=== PATIENT | female | born 1945 | race Caucasian/White ===

== ENCOUNTER 2021-04-07 03:38 | Inpatient (IN) | payer MEDICARE, SELFPAY ==
[2021-04-07] VITALS (28 sets, daily range): BP systolic 109–178; BP diastolic 41–117; PULSE 75–132; RESP 18–26; TEMP 35.5–36.8; O2SAT 95–100; BMI 33.7
--- NOTE | 2021-04-07 | ECHO_ITS ---
Patient Info Name: Mary Lou Desai Age: 76 years : 1945 Gender: Female Ht: 66 in Wt: 208 lbs BSA: 2.13 m2 HR: 87 bpm BP: 109 / 77 mmHg Heart Rhythm: Sinus Rhythm Technical Quality: Good Exam Date: 04/07/2021 1:44 PM Exam Location: [facility] Pulmonary Exam Room: 201 Patient Status: Inpatient Admit Date: 04/07/2021 Staff Ordering Physician: Antonio Strong MD Stocking Inspector: Angela Gutierrez RDCS Attending Provider: Devora Hayden DO Exam Type: CA echo doppler color flow Study Info Indications - elevated troponins Complete two-dimensional, color flow and Doppler transthoracic echocardiogram is performed. Summary 1. Complete two-dimensional, color flow and Doppler transthoracic echocardiogram is performed. 2. Left ventricular chamber dimension is normal. 3. Left ventricular systolic function is lower limits of normal, estimated at 50%. 4. Left ventricular wall thickness upper limits of normal. 5. Left ventricular septal wall motion is abnormal with septal motion related to bundle branch block. 6. The left ventricular diastolic function is grade II diastolic dysfunction. 7. Left atrial chamber dimension is moderately enlarged. 8. There is no aortic valve stenosis. 9. There is mild tricuspid valve regurgitation. 10. No pulmonary hypertension, estimated pulmonary arterial systolic pressure is 30 mmHg. Left Ventricle Left ventricular chamber dimension is normal. Left ventricular systolic function is lower limits of normal, estimated at 50%. Left ventricular wall thickness upper limits of normal. Left ventricular septal wall motion is abnormal with septal motion related to bundle branch block. The left ventricular diastolic function is grade II diastolic dysfunction. Right Ventricle Right ventricular chamber dimension is normal. Right ventricular systolic function is normal. Left Atria Left atrial chamber dimension is moderately enlarged. Right Atria Right atrial chamber dimension is mildly enlarged. Aortic Valve The aortic valve is not well visualized. There is no aortic valve stenosis. There is no aortic valve regurgitation. There is moderate aortic valve calcification. Pulmonic Valve The pulmonic valve is not well visualized. There is trace pulmonic regurgitation. Mitral Valve The mitral valve has thickened leaflets. There is mild mitral valve regurgitation. The mitral valve annulus is severely calcified. Tricuspid Valve The tricuspid valve leaflets are normal. There is mild tricuspid valve regurgitation. No pulmonary hypertension, estimated pulmonary arterial systolic pressure is 30 mmHg. Pericardium/Pleural The pericardium appears normal. There is no pericardial effusion. Inferior Vena Cava Normal inferior vena cava with >50% collapse upon inspiration consistent with normal right atrial pressure, 5 mmHg. Aorta The aortic root size at the sinus of Valsalva is normal. There is moderate aortic atherosclerosis. Left Ventricular Outflow Tract Name Value Normal LVOT 2D LVOT Diameter 2.0 cm LVOT Doppler LVOT Peak Gradient 8 mmHg
--- NOTE | ~2021-04-07 | XR_ITS ---
EXAMINATION: XR chest 1V portable DATE: 04/07/2021 03:58 INDICATION: Patient on hemodialysis presenting with shortness of breath. TECHNIQUE: frontal view of the chest was obtained. COMPARISON: None FINDINGS: Large bore dual lumen right internal jugular central venous catheter with distal tip at the superior cavoatrial junction. Pulmonary vascular congestion. Increased interstitial pattern in the right lower lung zone and favor pulmonary edema over pneumonia. There are also small bilateral pleural effusions . Mild cardiomegaly. Tortuous thoracic aorta. IMPRESSION: 1. Pulmonary vascular congestion with mild pulmonary edema versus less likely pneumonia in the right lower lung zone. 2. Small bilateral pleural effusions. 3. Cardiomegaly. Reviewed, dictated and finalized at location A. IMPRESSION: 1. Pulmonary vascular congestion with mild pulmonary edema versus less likely p neumonia in the right lower lung zone. 2. Small bilateral pleural effusions. 3. Cardiomegaly.
--- NOTE | ~2021-04-07 | XR_ITS ---
XR chest 2V DATE: 04/09/2021 10:12 INDICATION: Shortness of breath TECHNIQUE: AP and lateral views COMPARISON: 04/07/2021 portable AP chest FINDINGS: There is globular malleolar enlarged cardiac silhouette likely due to cardiomyopathy/cardio megaly. Pericardial effusion is not excluded. There is thoracic aortic calcification, ectasia and prominent tortuosity. Thoracic aortic aneurysm is not excluded. No hilar or mediastinal enlargement is evident. There is bilateral hyperinflation interval diminished right lower lung infiltrate; the lungs otherwis e appear clear.. Small pleural effusions are suggested, mildly improved on the right. No pulmonary vascularity is note d. Right internal jugular central venous catheter tip overlies upper right atrium. No pneumothorax. Diffuse osteopenia. There is degenerative spurring and kyphosis of the thoracic spine. IMPRESSION: Globular enlarged cardiac silhouette suggesting cardiomyopathy/cardiomegaly Small pleural effusions Interval resolution of pulmonary vascular congestion and diminished right infiltrate and right pleura l effusion since 04/07/2021 Aortic calcification, ectasia and tortuosity. Thoracic aortic aneurysm is not excluded Right internal jugular central venous catheter tip overlying upper right atrium Diffuse osteopenia Reviewed, dictated and finalized at location A. S ROOM ASSOCIATE IMPRESSION: Globular enlarged cardiac silhouette suggesting cardiomyopathy/card iomegaly Small pleural effusions Interval resolution of pulmonary vascular congestion and diminished right infil trate and right pleural effusion since 04/07/2021 Aortic calcification, ectasia and tortuosity. Thoracic aortic aneurysm is not e xcluded Right internal jugular central venous catheter tip overlying upper right atrium Diffuse osteopenia
--- NOTE | 2021-04-07 03:45 | ECG_ITS ---
Measurements Intervals [place] Rate: 119 P: 95 ME: 126 QRS: -12 QRSD: 162 T: 198 QT: 358 QTc: 505 Interpretive Statements ATRIAL FLUTTER/TACHYCARDIA WITH RAPID VENTRICULAR RESPONSE LEFT BUNDLE BRANCH BLOCK BASELINE ARTIFACT- I, II, III, AVR, AVL, AVF, V4-V5 ABNORMAL ECG Electronically Signed On 04-07-2021 6:08:32 CDT by Harley Decker D.O.
--- NOTE | 2021-04-07 03:47 | ED.SOB ---
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 Patient has not missed dialysis, and denies fever, denies chest pain, denies productive cough, no previous history of same. Unsure how much fluid they took off on Saturday Related Data Allergies Allergy/AdvReac Type Severity Reaction Status Date / Time lisinopril Allergy Swelling Verified 04/07/21 04:01 of Lip/Tongue/Throat Review of Systems Review of Systems: CONSTITUTIONAL: no fever, no weight loss, no confusion EYES: no vision changes, no eye pain ENT: no rhinorrhea, no sore throat, no difficulty swallowing R submandibular LAD CARDIOVASCULAR: no chest pain, no leg edema, no palpitations RESPIRATORY: no cough, positive for shortness of breath, no hemoptysis GASTROINTESTINAL: no abdominal pain, no nausea, no vomiting, no diarrhea GENITOURINARY: no flank pain, no dysuria, no hematuria SKIN: no rash, no jaundice MUSCULOSKELETAL: no back pain, no trauma. NEUROLOGIC: No headache, no dizziness, no focal weakness PSYCHIATRIC: No hallucinations, no suicidal ideation Exam Narrative: General: alert, afebrile, answering all questions appropriately Head: normocephalic, atraumatic Eyes: EOMI bilaterally, anicteric, no injection ENT: moist mucous membranes, oropharynx patent, no rhinorrhea Neck: supple, trachea midline, +JVD Chest: equal chest rise bilaterally, no chest wall trauma noted Lungs: decreased BS all pierce, no rales, labored breathing CV: regular rate, no KODY B, calf size equal bilaterally Abd: soft, non-distended, non-tender, no rebound, no gaurding, negative Onofre's : no CVA tenderness B, bladder non-distended EXT: no deformity noted, moving all extremities equally Skin: warm, dry, no pallor Neuro: alert, oriented x 3; CN 2-12 grossly intact, no dysarthria Psych: affect appropriate, though content normal Course Course Emergency Course: Patient arrives with sudden onset of shortness of breath by EMS; pulse ox 100% on 2LNC on arrival but patient with labored respirations and subdiaphragmatic retractions. Lung sounds are diminished in all pierce. Patient speaking 4-5 word sentences with mild difficulty. Portable chest x-ray was taken which showed some vascular congestion on x-ray no infiltrate. Patient is afebrile. Patient states this has not happened to her before she has not missed dialysis she is usually seen at [facility]. Differential diagnosis as above. Plan is to give albuterol, Lasix, and start nitro drip at 5 mcg and titrate blood pressure and comfort; CBC without elevated WBC, hemoglobin is 10.4 despite end-stage renal disease, potassium is normal at 4.2, BUN is 44 creatinine is 6.2 ABG is a venous blood sample but does not show acute respiratory acidosis. 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 No beds At [facility], Dr Gaspar consults at [place], will attempt to dc nitro drip and admit to IMU Consultations Consultation #1: After learning there are no beds and ultimately decided admit patient here Dr. Gaspar is also on staff here spoke with Dr. Gaspar again who agrees to consult on patient and see her today. Date: 04/07/21 Time: 05:36 Consultation #2: DC'd nitro drip 30 minutes prior. Patient doing well pulse 99, blood pressure 131/88, 100%
--- NOTE | 2021-04-07 03:50 | PC.NURSE ---
On arrival to ED pt states she had requested to go to [facility] due to that is where her specialist are and she has never been to this ED. Pt brought here instead and requested we call to notify her daughter. PH# Chapis [phone]. Spoke to Chapis at this time that states That is [place], come on. I told her before she even left to request [place], that is where her specialist and doctors are. She has had multiple admissions there. She has never even been to your hospital. EDP and Charge made aware.
[2021-04-07] MEDS: ALBUTEROL SULFATE NEB 2.5 MG/0.5 ML INH 5 MG INHALATION (04:01)
[2021-04-07] MEDS: IPRATROPIUM BR 0.02% INH SOLN 0.5 MG/2.5 ML VIAL INHALATION (04:01)
[2021-04-07] MEDS: FUROSEMIDE INJ 40 MG/4 ML VIAL IV PUSH (04:05)
[2021-04-07] MEDS: NITROGLYCERIN/D5W 200 MCG/ML 50 MG/250 ML BTL IV CONT (04:05)
[2021-04-07 04:07] LABS: Alveolar/Arterial O2 Gradient 73.9 mmHg; Base Excess ABG -1.8 mEq/l (+/-2.0); Fractional Inspired Oxygen 21 %; Oxygen Content ABG 8.7 %vol (16.0-22.0); Oxyhemoglobin 51.4 % THb (90.0-100.0); PCO2 ABG 39.4 mmHg (35.0-45.0); PO2 FiO2 Ratio Arterial Blood 1.37 %; Total Hemoglobin 12.1 g/dL (12.0-18.0); pH ABG 7.385 (7.350-7.450)
[2021-04-07 04:08] LABS: Basophils Absolute Auto 0.1 K/mm3 (0.0-0.1); Basophils Percent Auto 0.8 % (0.2-1.2); Eosinophils Absolute Auto 0.2 K/mm3 (0-0.3); Eosinophils Percent Auto 2.7 % (0-4.4); Hematocrit 34.6 % (37.0-47.0); Hemoglobin 10.4 g/dL (12.0-15.0); Immature Granulocyte Absolute 0.03 K/mm3 (0.00-0.031); Immature Granulocyte Percent A 0.3 % (0-0.5); Lymphocytes Absolute Auto 1.44 K/mm3 (0.9-3.2); Lymphocytes Percent Auto 16.3 % (18.3-44.2); Mean Corpuscular HGB Conc 30.1 g/dl (32-36); Mean Platelet Volume 9.3 fl (7.4-10.4); Monocytes Absolute Auto 0.6 K/mm3 (0.1-0.6); Monocytes Percent Auto 6.2 % (2.6-8.5); Neutrophils Absolute Auto 6.5 K/mm3 (1.3-6.7); Neutrophils Percent Auto 73.7 % (45.5-73.1); Platelet Count Result 262 k/mm3 (150-375); Red Blood Count 3.36 M/mm3 (4.2-5.4); Red Cell Distribution Width 14.6 % (11.5-14.5); White Blood Count 8.8 K/mm3 (4.5-10.0)
[2021-04-07 04:08] LABS: Device ROOM AIR; Modified Allen's Test Pass; Oxygen Saturation ABG 53.5 % (95.0-100.0); PO2 ABG 28.7 mmHg (80.0-100.0); Site Drawn RIGHT RADIAL
--- NOTE | 2021-04-07 04:20 | PC.NURSE ---
Pt titrated to 10mcg Nitro per EDP Dr Lizzie ABREU.
[2021-04-07 04:23] LABS: INR 1.2; Prothrombin Time 14.6 Seconds (11.1-14.7)
[2021-04-07 04:24] LABS: Partial Thromboplastin Time 34.9 SECONDS (22.3-36.8)
[2021-04-07 04:26] LABS: Alanine Aminotransferase 9 U/L (4-35); Albumin Level 4.1 g/dL (3.5-5.1); Alkaline Phosphatase 116 U/L (38-126); Anion Gap 15 mmol/L (8-16); Aspartate Amino Transferase 16 U/L (14-36); Bilirubin,Total 0.6 mg/dL (0.2-1.3); Blood Urea Nitrogen 44 mg/dL (7-17); Calcium 10.1 mg/dL (8.4-10.2); Carbon Dioxide 22 mmol/L (22-30); Chloride 99 mmol/L (98-107); Estimated CRCL calculation 8 ml/min; Estimated Glomerular Filt Rate 7; Glucose 114 mg/dL (65-110); Magnesium 2.2 mg/dL (1.6-2.3); Potassium 4.2 mmol/L (3.4-5.0); Sodium 136 mmol/L (137-145)
[2021-04-07 04:43] LABS: Troponin I 0.084 ng/mL (0.000-0.034)
--- NOTE | 2021-04-07 04:51 | PC.NURSE ---
VORB received from EDP Dr. Samuel to titrate infusion to 15 mcg/min.
--- NOTE | 2021-04-07 06:19 | PC.NURSE ---
BRADY received from Dr. Samuel to discontinue IV infusion.
[2021-04-07 08:02] LABS: Troponin I 0.156 ng/mL (0.000-0.034)
--- NOTE | 2021-04-07 08:17 | PM.CNNEP ---
Assessment and Plan Assessment and plan (1) End-stage renal disease (ESRD): Code(s): N18.6 - End stage renal disease Status: Acute Assessment and Plan: ON HEMODIALYSIS AFTER FAILED PERITONEAL DIALYSIS W [facility]LEBS[facility]A PERITONITIS- THEN FUNGAL PERITONITIS IN NOVEMBER-DECEMBER 2020. HAS TUNNELED R IJ HD LINE AND AVF BUT LATTER IS HEALING/ MATURINA (2) Pulmonary vascular congestion: Code(s): R09.89 - Other specified symptoms and signs involving the circulatory and respiratory systems Status: Acute Assessment and Plan: C/O BY DIASTOLIC CHF- PLAN IS FOR DIALYSIS TODAY AND TOMORROW. HOPEFULLY WILL BE ABLE TO DISCHARGE BY TOMORROW (3) Acute dyspnea: Code(s): R06.00 - Dyspnea, unspecified Status: Acute (4) Atrial fibrillation: Code(s): I48.91 - Unspecified atrial fibrillation Status: Acute (5) Diastolic congestive heart failure, NYHA class 2: Code(s): I50.30 - Unspecified diastolic (congestive) heart failure Status: Acute (6) Anemia in chronic kidney disease: Code(s): N18.9 - Chronic kidney disease, unspecified; D63.1 - Anemia in chronic kidney disease Status: Acute (7) Thoracic aortic aneurysm without rupture: Code(s): I71.2 - Thoracic aortic aneurysm, without rupture Status: Acute (8) Right leg DVT: Code(s): I82.401 - Acute embolism and thrombosis of unspecified deep veins of right lower extremity Status: Acute Assessment and Plan: MAR 2021 AT [facility]- FAILED COUMADIN SO PLACED BACK ON ELIQUIS- DID NOT HAVE A PE (9) Coagulopathy: Code(s): D68.9 - Coagulation defect, unspecified Status: Acute Assessment and Plan: DUE TO ELIQUIS (10) Obesity: Code(s): E66.9 - Obesity, unspecified Status: Acute History of Present Illness Reason for Consult Consult date: 04/07/21 Chief Complaint Chief complaint: ESRD/pulmonary vascular congestion/dyspnea Review of Systems Review of Systems: 76 yo wf ESRD DUE TO HTN-PREVIOUSLY ON HOME PD BUT FAILED OVER THE SUMMER TIEH GRAM NEG KLEBSIELLA PERITONITIS AND THEN FUNGAL FAINA TROPICALIS PERITONITIS AND REQUIRED PD CATHETER REMOVAL IN DECEMBER AT [facility] DURING WHICH THAT STAY WAS COMPLICATED BY AFIB. SHE THEN WAS HOSPITALIZED IN EARLY MARCH AGAIN AT [facility] WITH RIGHT LEG DVT. SHE INITALLY WAS PRESCRIBED COUMADIN BUT THIS COULD NOT BE TESTED AND REGULATED PROPERLY AT HER SENIOR CARE SO SHE IS ON ELIQUIS AGAIN. SHE NOW COMES IN WITH DYSPNEA WAKING HER UP THIS AM WITHOUT ANY CHEST PAIN OR PLEURISY OR HEMOPTYSIS. SHE IS DUE FOR HEMODIALYSIS TODAY AND REMAINS AT [facility] 2ND SHIFT Meds Home Medications and Allergies Allergies Allergy/AdvReac Type Severity Reaction Status Date / Time lisinopril Allergy Swelling Verified 04/07/21 04:01 of Lip/Tongue/Throat Vital Signs Vital Signs - 24 hr 04/07/21 03:39 04/07/21 03:53 04/07/21 03:55 Temperature 36.1 C L Pulse Rate 121 H 123 H Respiratory Rate 23 H Blood Pressure 159/111 H Pulse Oximetry 97 97 04/07/21 04:01 04/07/21 04:02 04/07/21 04:05 Temperature Pulse Rate 123 H 122 H 122 H Respiratory Rate 20 Blood Pressure 152/117 H Pulse Oximetry 04/07/21 04:15 04/07/21 04:20 04/07/21 04:24 Temperature Pulse Rate 127 H 126 H 126 H Respiratory Rate 24 H 23 H Blood Pressure 148/101 H 148/101 H Pulse Oximetry 97 04/07/21 04:47 04/07/21 04:51 04/07/21 05:02 Temperature Pulse Rate 96 111 H 108 H Respiratory Rate 18 18 Blood Pressure 133/97 H 133/97 H 122/79 Pulse Oximetry 100 95 04/07/21 05:52 04/07/21 06:19 04/07/21 06:58 Temperature Pulse Rate 95 99 96 Respiratory Rate 23 H 20 Blood Pressure 134/83 130/92 H 134/94 H Pulse Oximetry 95 98 Exam Const: General: cooperative and acute distress (MILD RESP DISTRESS BUT ABLE TO SPEAK IN FULL SENTENCES) Orientation/consciousness: oriented to person, oriented to place and oriented to time
--- NOTE | 2021-04-07 08:28 | ADMGEN ---
This patient, Mary Lou Desai, was admitted to IMU Room 201-01 at 0805 on 04/07/2021. Patient/family oriented to hospital policies and general routines including ID bracelet, bed and alarms, visiting hours, pain management, procedures, bathroom and other care routines, personal items, smoking policy, room service/diet, and visiting hours. Information on how to activate the Rapid Response Team has been discussed. Patient/Family are encouraged to report perceived risks to care and to ask questions if they do not understand what they are told or what they should do.
--- NOTE | 2021-04-07 08:38 | PM.IMHP ---
H&P: HPI History of Present Illness Date/Time: 04/07/21 08:38 Chief Complaint: Shortness of breath Narrative: 76 year old female with history of ESRD, dialysis MWF presents to the ED with sudden onset of shortness of breath that started last night that woke her up from her sleep. She denies any chest pain or palpitations or any nausea vomiting associated with it. She denies any abdominal pain as wall. She was breathing fast and was not wheezing. She is not on home oxygen she denies any cough no fever chills into the ER was noted to have increased work of breathing was placed on oxygen. Her ABG was likely venous chest x-ray showed pulmonary vascular congestion got a dose of Lasix was placed on nitro drip. 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 She was attempted to be transferred there for further care however there were no beds available and hence could admitted over here currently she is off nitro drip she is feeling much better. She went for her hemodialysis on Saturday and did well and has not missed her dialysis sessions. She reports lower extremity edema and has been having those for quite some time. She has been taking her Eliquis on a regular basis for her left leg DVT as well. Review of Systems Review of Systems: - CONSTITUTIONAL: Denies weight loss, fever and chills. - HEENT: Denies changes in vision and hearing - RESPIRATORY: Reports SOB and denies cough. - CV: Denies palpitations and CP. - GI: Denies abdominal pain, nausea, vomiting and diarrhea. - : Denies dysuria and urinary frequency. - MSK: Denies myalgia and joint pain. - SKIN: Denies rash and pruritus. - NEUROLOGICAL: Denies headache and syncope. - PSYCHIATRIC: Denies recent changes in mood. Denies anxiety and depression. All systems reviewed & are unremarkable except as noted in HPI and below Constitutional: Constitutional: Reports fatigue and Reports weakness Neurologic: Reports weakness Endocrine: Endocrine: Reports fatigue [facility] Social History Social History Smoking packs per day: 0.5 Smoking cigarettes per day: 10.0 Years smoked: 40 Smoking pack-years: 20.00 Smoking status: Former smoker Alcohol intake: never Substance use: never Spiritual care concerns: No Meds Home Medications and Allergies Home Medications Medication Instructions Recorded Confirmed Type amiodarone 04/07/21 History amlodipine 04/07/21 History apixaban [Eliquis] mg 04/07/21 History bumetanide 04/07/21 History clonazepam 04/07/21 History diltiazem HCl PO 04/07/21 History docusate sodium PO 04/07/21 History hydralazine 04/07/21 History hydrocodone-acetaminophen 04/07/21 History nebivolol [Bystolic] mg 04/07/21 History sevelamer carbonate 04/07/21 History Allergies Allergy/AdvReac Type Severity Reaction Status Date / Time lisinopril Allergy Swelling Verified 04/07/21 04:01 of Lip/Tongue/Throat Vital Signs Vital Signs - 24 hr 04/07/21 03:39 04/07/21 03:53 04/07/21 03:55 Temperature 97.0 F L Pulse Rate 121 H 123 H Respiratory Rate 23 H Blood Pressure 159/111 H Pulse Oximetry 97 97 04/07/21 04:01 04/07/21 04:02 04/07/21 04:05 Temperature Pulse Rate 123 H 122 H 122 H Respiratory Rate 20 Blood Pressure 152/117 H Pulse Oximetry 04/07/21 04:15 04/07/21 04:20 04/07/21 04:24 Temperature Pulse Rate 127 H 126 H 126 H Respiratory Rate 24 H 23 H Blood Pressure 148/101 H 148/101 H Pulse Oximetry 97 04/07/21 04:47 04/07/21 04:51 04/07/21 05:02 Temperature Pulse Rate 96 111 H 108 H Respiratory Rate 18 18 Blood Pressure 133/97 H 133/97 H 122/79 Pulse Oximetry 100 95 04/07/21 05:52 04/07/21 06:19
[2021-04-07 10:13] LABS: Troponin I 0.232 ng/mL (0.000-0.034)
[2021-04-07 10:39] LABS: Hepatitis B Surface Antigen Negative (Negative)
[2021-04-07 10:44] LABS: Hepatitis B Core IgM Result Negative (Negative)
[2021-04-07 13:11] LABS: Hepatitis B Surface Anti Res Positive
--- NOTE | 2021-04-07 14:14 | PM.CNCAR ---
Assessment and Plan Assessment and plan (1) Elevated troponin: Code(s): R77.8 - Other specified abnormalities of plasma proteins Status: Acute Assessment and Plan: Most likely type 2 infarct not secondary to acute coronary syndrome and/or plaque rupture related to acute heart failure with reduced ejection fraction, elevated BP, underlying atrial tachyarrhythmia, and end-stage renal disease. Cannot exclude underlying CAD, however. Patient declined ischemic workup at this time. I did explain to the patient troponin trend given her risk factors and presentation may be secondary to underlying CAD. She promptly responded I do not have that problem and was not interested in further workup. Explained the concerns and how this may result in her presentation. She does agree to follow-up with her hull sorter soon after discharge. Although unlikely cannot entirely exclude acute pulmonary embolism as explanation for patient's presentation rate however, patient is now back at her baseline med treatment for her volume status which would argue against acute thromboembolic event as the explanation and given the fact that she is on chronic anticoagulation. I explained while this remains possibility it is unlikely. Discussed CT angiogram of the chest to assess for pulmonary embolism to which she also declined. 2D echocardiogram personally reviewed EF lower limits normal 50% no significant valve pathology. (2) Acute dyspnea: Code(s): R06.00 - Dyspnea, unspecified Status: Acute Assessment and Plan: Patient presents volume overload with heart failure with preserved ejection fraction as above in atrial flutter with RVR, uncontrolled hypertension improved with diuretic, hemodialysis and BP control. (3) Atrial flutter with rapid ventricular response: Code(s): I48.92 - Unspecified atrial flutter Status: Acute Assessment and Plan: Chronicity unknown. Patient denies however amiodarone and anticoagulation suggests she has a history of tachyarrhythmia. Records unavailable for corroboration. Continue for now. Patient advised to follow up with her hull sorter at [place] within the next 2-4 weeks at discharge. Continue current medical therapy with amiodarone 200 mg daily and Bystolic 10 mg daily. Repeat 12 lead EKG. (4) Left bundle branch block: Code(s): I44.7 - Left bundle-branch block, unspecified Status: Acute (5) Right leg DVT: Code(s): I82.401 - Acute embolism and thrombosis of unspecified deep veins of right lower extremity Status: Acute Assessment and Plan: Continue systemic anticoagulation Eliquis 2.5 mg twice daily. She is currently on daily correction recommended must otherwise advised by Nephrology. (6) Anemia in chronic kidney disease: Code(s): N18.9 - Chronic kidney disease, unspecified; D63.1 - Anemia in chronic kidney disease Status: Acute Assessment and Plan: Hemoglobin 10.4. Follow H&H. No evidence of bleeding at this time. (7) End-stage renal disease (ESRD): Code(s): N18.6 - End stage renal disease Status: Acute Assessment and Plan: Hemodialysis per Nephrology. Appreciate Dr. Gaspar's involvement and recommendations. (8) Chronic anticoagulation: Code(s): Z79.01 - MCFP (current) use of anticoagulants Status: Acute Assessment and Plan: As above, anticoagulation not only for DVT history but atrial flutter. Patient denies a prior known history, however, given, amiodarone I doubt this is the case. Unfortunately, I have no prior records to corroborate at this time. History of Present Illness History of Present Illness Consult date/time: Date of service: 04/07/21 14:14 Cardiology consultation at the request of Dr. Strong for our opinion regarding elevated troponin and shortness of breath. Requesting physician: Antonio Strong MD Consult reason: shortness of breath and Other (elevated troponin) R
--- NOTE | 2021-04-07 14:52 | PCOTNOTE ---
Attempted to see patient for OT evaluation this afternoon. Patient off floor for dialysis. Will continue to attempt.
--- NOTE | 2021-04-07 14:58 | ECG_ITS ---
Measurements Intervals [place] Rate: 101 P: VT: 0 QRS: -7 QRSD: 162 T: 176 QT: 399 QTc: 519 Interpretive Statements ATRIAL FLUTTER/TACHYCARDIA WITH RAPID VENTRICULAR RESPONSE LEFT BUNDLE BRANCH BLO ABNORMAL [facility]K Electronically Signed On 04-07-2021 15:56:43 CDT by Harley Decker D.O.
[2021-04-07 15:48] LABS: Troponin I 0.354 ng/mL (0.000-0.034)
[2021-04-07] MEDS: BUMETANIDE 1 MG TABLET PO (22:04)
[2021-04-07] MEDS: DOCUSATE SODIUM 100 MG CAPSULE PO (22:04)
[2021-04-07] MEDS: APIXABAN 2.5 MG TABLET PO (22:04)
[2021-04-07] MEDS: HYDROcodone/acetaminophen (*CRX) 5-325 MG TABLET 1 TAB PO (22:10)
[2021-04-08] VITALS (32 sets, daily range): BP systolic 95–141; BP diastolic 26–110; PULSE 60–131; RESP 18–22; TEMP 35.6–36.8; O2SAT 95–100
[2021-04-08 05:41] LABS: Basophils Percent Auto 0.6 % (0.2-1.2); Eosinophils Absolute Auto 0.3 K/mm3 (0-0.3); Eosinophils Percent Auto 4.3 % (0-4.4); Hematocrit 34.3 % (37.0-47.0); Hemoglobin 10.1 g/dL (12.0-15.0); Immature Granulocyte Absolute 0.02 K/mm3 (0.00-0.031); Immature Granulocyte Percent A 0.3 % (0-0.5); Lymphocytes Absolute Auto 1.01 K/mm3 (0.9-3.2); Lymphocytes Percent Auto 16.1 % (18.3-44.2); Mean Corpuscular HGB Conc 29.4 g/dl (32-36); Mean Corpuscular Hemoglobin 31.1 pg (26-34); Mean Corpuscular Volume 105.5 fl (80-100); Mean Platelet Volume 9.1 fl (7.4-10.4); Monocytes Absolute Auto 0.5 K/mm3 (0.1-0.6); Monocytes Percent Auto 7.5 % (2.6-8.5); Neutrophils Absolute Auto 4.5 K/mm3 (1.3-6.7); Neutrophils Percent Auto 71.2 % (45.5-73.1); Platelet Count Result 237 k/mm3 (150-375); Red Blood Count 3.25 M/mm3 (4.2-5.4); Red Cell Distribution Width 14.7 % (11.5-14.5); White Blood Count 6.3 K/mm3 (4.5-10.0)
[2021-04-08 05:58] LABS: Anion Gap 8 mmol/L (8-16); Blood Urea Nitrogen 22 mg/dL (7-17); Calcium 9.3 mg/dL (8.4-10.2); Carbon Dioxide 32 mmol/L (22-30); Chloride 98 mmol/L (98-107); Estimated CRCL calculation 13 ml/min; Estimated Glomerular Filt Rate 11; Glucose 89 mg/dL (65-110); Potassium 3.6 mmol/L (3.4-5.0); Sodium 138 mmol/L (137-145)
[2021-04-08] MEDS: SEVELAMER CARBONATE 800 MG TABLET PO ×3 (09:05→19:40)
[2021-04-08] MEDS: BUMETANIDE 1 MG TABLET PO ×2 (09:06→20:22)
[2021-04-08] MEDS: DOCUSATE SODIUM 100 MG CAPSULE PO ×2 (09:06→20:22)
[2021-04-08] MEDS: APIXABAN 2.5 MG TABLET PO ×2 (09:06→20:22)
[2021-04-08] MEDS: AMIODARONE HCL 200 MG TABLET 400 MG PO (10:42)
--- NOTE | 2021-04-08 11:27 | PM.PNCARD ---
Progress Note: A&P Assessment and Plan (1) Atrial flutter with rapid ventricular response: Code(s): I48.92 - Unspecified atrial flutter Status: Acute Assessment and Plan: Chronicity unknown but given use of amiodarone suspect this is not a new issue. Patient predominantly in atrial flutter with variable AV block and RVR. Caution with regards to risk for tachy-cory particularly underlying left bundle-branch block. However, heart rate generally is uncontrolled in atrial flutter with RVR. Therefore I would recommend restarting amiodarone and increasing dose to 400 mg at least daily to observe tolerance. If acceptable response they continue to hold Nebivolol although would prefer to resume lower dose at 5mg daily as tolerated. Continue systemic anticoagulation. Telemetry. I would monitor on telemetry another 24 hours to ensure better heart rate control prior to discharge. (2) Elevated troponin: Code(s): R77.8 - Other specified abnormalities of plasma proteins Status: Acute Assessment and Plan: Most likely type 2 infarct not secondary to acute coronary syndrome and/or plaque rupture related to acute heart failure with reduced ejection fraction, elevated BP, underlying atrial tachyarrhythmia, and end-stage renal disease. Cannot exclude underlying CAD, however. Patient declined ischemic workup at this time. I did explain to the patient troponin trend given her risk factors and presentation may be secondary to underlying CAD. She promptly responded I do not have that problem and was not interested in further workup. Explained the concerns and how this may result in her presentation. She does agree to follow-up with her soil checker soon after discharge. Although unlikely cannot entirely exclude acute pulmonary embolism as explanation for patient's presentation rate however, patient is now back at her baseline med treatment for her volume status which would argue against acute thromboembolic event as the explanation and given the fact that she is on chronic anticoagulation. I explained while this remains possibility it is unlikely. Discussed CT angiogram of the chest to assess for pulmonary embolism to which she also declined. 2D echocardiogram personally reviewed EF lower limits normal 50% no significant valve pathology. (3) Acute dyspnea: Code(s): R06.00 - Dyspnea, unspecified Status: Acute Assessment and Plan: Patient presents volume overload with heart failure with preserved ejection fraction as above in atrial flutter with RVR, uncontrolled hypertension improved with diuretic, hemodialysis and BP control. Continue diuretic therapy with Bumex. (4) Left bundle branch block: Code(s): I44.7 - Left bundle-branch block, unspecified Status: Acute Assessment and Plan: Likely chronic. As above, caution with regards to AV chago blocking agents, antiarrhythmic therapy and underlying conduction abnormality. However, need to control heart rate with observation at this time. (5) Right leg DVT: Code(s): I82.401 - Acute embolism and thrombosis of unspecified deep veins of right lower extremity Status: Acute Assessment and Plan: Continue systemic anticoagulation Eliquis 2.5 mg twice daily. She is currently on daily correction recommended must otherwise advised by Nephrology. (6) Anemia in chronic kidney disease: Code(s): N18.9 - Chronic kidney disease, unspecified; D63.1 - Anemia in chronic kidney disease Status: Acute Assessment and Plan: Hemoglobin 10.4. Follow H&H. No evidence of bleeding at this time. (7) End-stage renal disease (ESRD): Code(s): N18.6 - End stage renal disease Status: Acute Assessment and Plan: Hemodialysis per Nephrology. Hemodialysis planned for today. (8) Chronic anticoagulation: Code(s): Z79.01 - retirement (current) use of anticoagulants Status: Acute Assessment and Plan: Con
[2021-04-08] MEDS: SODIUM CHLORIDE 0.9% IV 1,000 ML 100 ML IV CONT (14:45)
--- NOTE | 2021-04-08 16:11 | PM.IMPN ---
Progress Note: A&P Assessment and Plan (1) Obesity: Code(s): E66.9 - Obesity, unspecified Status: Acute (2) Right leg DVT: Code(s): I82.401 - Acute embolism and thrombosis of unspecified deep veins of right lower extremity Status: Acute (3) Thoracic aortic aneurysm without rupture: Code(s): I71.2 - Thoracic aortic aneurysm, without rupture Status: Acute (4) Anemia in chronic kidney disease: Code(s): N18.9 - Chronic kidney disease, unspecified; D63.1 - Anemia in chronic kidney disease Status: Acute (5) Diastolic congestive heart failure, NYHA class 2: Code(s): I50.30 - Unspecified diastolic (congestive) heart failure Status: Acute (6) Atrial fibrillation: Code(s): I48.91 - Unspecified atrial fibrillation Status: Acute (7) End-stage renal disease (ESRD): Code(s): N18.6 - End stage renal disease Status: Acute (8) Pulmonary vascular congestion: Code(s): R09.89 - Other specified symptoms and signs involving the circulatory and respiratory systems Status: Acute (9) Acute dyspnea: Code(s): R06.00 - Dyspnea, unspecified Status: Acute Additional Plan # Shortness of breath sudden onset: Tachycardic on presentation with hypertension. EKG A flutter with rapid ventricular rate rates in 120s. Chest x-ray with pulmonary vascular congestion with mild pulmonary edema less likely pneumonia in the right lower lung zone small bilateral pleural effusion with cardiomegaly. Initial troponin elevated at 0.084. Repeat up at 0.156. No chest pain reported. Likely due to congestive heart failure. She was dialyzed yesterday and plan to do again today. Her troponin continue to elevate and hence Cardiology was consulted however patient had no chest pain and she refused any further cardiac workup while inpatient. She is advised to follow up with her regular electronic component processor after discharge from this hospital. Will try to wean her oxygen down for potential discharge tomorrow. # Mild anemia likely anemia chronic disease due to underlying end-stage renal disease # end-stage renal disease on hemodialysis since December 2020 a right IJ line. AVF maturing not yet used # previously on peritoneal dialysis failed due to Klebsiella peritonitis then fungal peritonitis in NovemberDecember 2020 # diastolic congestive heart failure acute on chronic on Bumex at home which will be resumed # atrial fibrillation with rapid ventricular rate likely due to pulmonary edema resume home medication and monitor amiodarone dose increased per Cardiology # thoracic aortic aneurysm # history of right DVT on Eliquis initially on Coumadin however was difficult to regulate INR while on Coumadin # obesity # DVT prophylaxis already on Eliquis which will be resumed Subjective Date/time seen: 04/08/21 16:11 Interval history: Feels better no overnight events underwent hemodialysis yesterday as planned to do again today. Remains on oxygen denies any shortness of breath refuses stress test or any of further testing for heart Review of Systems Review of Systems: All systems reviewed & are unremarkable except as noted in HPI and below Exam Narrative: General: alert, afebrile, not in acute distress Head: normocephalic, atraumatic Eyes: EOMI bilaterally, anicteric, no injection ENT: moist mucous membranes, oropharynx patent, no rhinorrhea Neck: supple, trachea midline, +JVD Chest: equal chest rise bilaterally, no chest wall trauma noted Lungs: decreased BS all pierce, no rales, on labored breathing CV: He fibrillation with rapid ventricular rate rate in 110s, Abd: soft, non-distended, non-tender, no rebound, no gaurding, negative Onofre's : no CVA tenderness B, bladder non-distended EXT: no deformity noted, moving all extremities equally bilateral lower extremity edema noted Skin: warm, dry, no pallor Neuro: alert, oriented x 3; CN 2-12 grossly intact, no dysarthria Psych: a
[2021-04-09] VITALS (17 sets, daily range): BP systolic 98–130; BP diastolic 65–86; PULSE 80–131; RESP 20–22; TEMP 36.2–36.9; O2SAT 96–100
--- NOTE | 2021-04-09 01:05 | PC.NURSE ---
Daylight Savings Time For Daylight Savings Time Ending in the Fall - Clocks are moved back. For Daylight Savings Time Beginning in the Spring - Clocks are moved ahead. For [facility], the time of change occurs at 0200 hrs. Time is taken from the subpoena server. This entry on the patient's chart recognizes the change in time reflected during documentation. Example: 2 entries for vital signs may be charted for 0200 hrs.
[2021-04-09 06:11] LABS: Basophils Absolute Auto 0.1 K/mm3 (0.0-0.1); Eosinophils Absolute Auto 0.3 K/mm3 (0-0.3); Eosinophils Percent Auto 4.2 % (0-4.4); Hematocrit 33.5 % (37.0-47.0); Hemoglobin 9.8 g/dL (12.0-15.0); Immature Granulocyte Absolute 0.03 K/mm3 (0.00-0.031); Immature Granulocyte Percent A 0.4 % (0-0.5); Lymphocytes Absolute Auto 0.96 K/mm3 (0.9-3.2); Lymphocytes Percent Auto 13.4 % (18.3-44.2); Mean Corpuscular HGB Conc 29.3 g/dl (32-36); Mean Corpuscular Hemoglobin 30.8 pg (26-34); Mean Corpuscular Volume 105.3 fl (80-100); Mean Platelet Volume 9.6 fl (7.4-10.4); Monocytes Absolute Auto 0.6 K/mm3 (0.1-0.6); Monocytes Percent Auto 8.2 % (2.6-8.5); Neutrophils Absolute Auto 5.2 K/mm3 (1.3-6.7); Neutrophils Percent Auto 72.8 % (45.5-73.1); Platelet Count Result 228 k/mm3 (150-375); Red Blood Count 3.18 M/mm3 (4.2-5.4); Red Cell Distribution Width 14.6 % (11.5-14.5); White Blood Count 7.2 K/mm3 (4.5-10.0)
[2021-04-09 06:26] LABS: Anion Gap 13 mmol/L (8-16); Blood Urea Nitrogen 38 mg/dL (7-17); Calcium 9.5 mg/dL (8.4-10.2); Carbon Dioxide 24 mmol/L (22-30); Chloride 97 mmol/L (98-107); Estimated CRCL calculation 10 ml/min; Estimated Glomerular Filt Rate 8; Glucose 72 mg/dL (65-110); Magnesium 2.5 mg/dL (1.6-2.3); Potassium 4.3 mmol/L (3.4-5.0); Sodium 134 mmol/L (137-145)
[2021-04-09 08:25] LABS: Hypochromasia 1+ (NORMAL); Macrocytosis 1+ (NORMAL); Platelet Estimate Adequate (Adequate)
[2021-04-09] MEDS: DOCUSATE SODIUM 100 MG CAPSULE PO ×2 (09:02→22:03)
[2021-04-09] MEDS: APIXABAN 2.5 MG TABLET PO ×2 (09:02→22:03)
[2021-04-09] MEDS: AMIODARONE HCL 200 MG TABLET 400 MG PO (09:02)
[2021-04-09] MEDS: SEVELAMER CARBONATE 800 MG TABLET PO ×3 (09:02→16:57)
[2021-04-09] MEDS: BUMETANIDE 1 MG TABLET PO ×2 (09:02→22:03)
--- NOTE | 2021-04-09 09:15 | PM.PNCARD ---
Progress Note: A&P Assessment and Plan (1) Atrial flutter with rapid ventricular response: Code(s): I48.92 - Unspecified atrial flutter Status: Acute Assessment and Plan: Chronicity unknown but given use of amiodarone suspect this is not a new issue. Patient predominantly in atrial flutter with variable AV block and RVR. Caution with regards to risk for tachy-cory particularly underlying left bundle-branch block. However, heart rate generally is uncontrolled in atrial flutter with RVR. Recommend Amiodarone 4 mg daily for the next 3 days then reduce to 200 mg daily. Further management in this regard as an outpatient per her Electrical Logging Engineer. As patient is frequently in atrial flutter with RVR I feel we more appropriate for better heart rate control as well as the discharge with uncontrolled atrial flutter with a small increase in her amiodarone. Discussed this risk versus benefit balance in detail. Nursing reported her [id number] [facility] requesting phone call. Attempted to call [facility] at [phone] no answer. Left message to return phone call so I can discuss plan of care. Pt improved on Amiodarone 400mg daily for now. Discussed long-term risks with amiodarone including toxicity involving the eyes, thyroid and lungs. Discussed longer-term use would require monitoring with yearly eye exams, thyroid blood tests, chest x-ray and or pulmonary function tests to assess for amiodarone toxicity. Pt verbalized understanding of this rationale and outpatient follow-up recommendations with her steam drier operator. Disposition per hospitalist service. (2) Elevated troponin: Code(s): R77.8 - Other specified abnormalities of plasma proteins Status: Acute Assessment and Plan: Most likely type 2 infarct not secondary to acute coronary syndrome and/or plaque rupture related to acute heart failure with reduced ejection fraction, elevated BP, underlying atrial tachyarrhythmia, and end-stage renal disease. Cannot exclude underlying CAD, however. Patient declined ischemic workup at this time. I did explain to the patient troponin trend given her risk factors and presentation may be secondary to underlying CAD. She promptly responded I do not have that problem and was not interested in further workup. Explained the concerns and how this may result in her presentation. She does agree to follow-up with her steam drier operator soon after discharge. Although unlikely cannot entirely exclude acute pulmonary embolism as explanation for patient's presentation rate however, patient is now back at her baseline med treatment for her volume status which would argue against acute thromboembolic event as the explanation and given the fact that she is on chronic anticoagulation. I explained while this remains possibility it is unlikely. Discussed CT angiogram of the chest to assess for pulmonary embolism to which she also declined. 2D echocardiogram personally reviewed EF lower limits normal 50% no significant valve pathology. (3) Acute dyspnea: Code(s): R06.00 - Dyspnea, unspecified Status: Acute Assessment and Plan: Patient presents volume overload with heart failure with preserved ejection fraction as above in atrial flutter with RVR, uncontrolled hypertension improved with diuretic, hemodialysis and BP control. Continue diuretic therapy with Bumex. Patient appears to be relatively euvolemic at this time after hemodialysis last night. She is hemodynamically stable. Discussed O2 risks and benefits. Discussed strict criteria for qualification for supplemental oxygen as an outpatient. Home O2 evaluation today. No documented hypoxia per vital signs. Explained risk for toxicity in her complications with supplemental O2 if unnecessary. She verbalized understanding. (4) Left bundle branch block: Code(s): I44.7 - Left bundle-branch block, unspecified Status: Acute Assessment and Plan: Likely chronic. As above, c
--- NOTE | 2021-04-09 09:34 | PM.PNNEP ---
Subjective Date/time seen: 04/08/21 14:34 pt on dialysis machine for extra tx for dry ultrafiltration. very sob without oxygen and wants to have at home. Objective Data Vital Signs Vital Signs: Vital Signs - 24 hr 04/08/21 10:42 04/08/21 11:58 04/08/21 12:00 Temperature Pulse Rate 115 H 84 81 Respiratory Rate Blood Pressure Pulse Oximetry 100 04/08/21 12:16 04/08/21 14:00 04/08/21 15:50 Temperature 35.8 C L 35.6 C L Pulse Rate 82 112 H 112 H Respiratory Rate 20 20 Blood Pressure 132/96 H 107/79 Pulse Oximetry 100 95 04/08/21 16:00 04/08/21 16:10 04/08/21 16:30 Temperature 36.8 C Pulse Rate 124 H 102 H 82 Respiratory Rate 18 Blood Pressure 140/62 139/82 109/71 Pulse Oximetry 04/08/21 16:45 04/08/21 17:00 04/08/21 17:15 Temperature Pulse Rate 127 H 130 H 131 H Respiratory Rate Blood Pressure 121/74 122/72 109/72 Pulse Oximetry 04/08/21 17:30 04/08/21 17:45 04/08/21 18:00 Temperature Pulse Rate 121 H 76 94 Respiratory Rate Blood Pressure 96/61 L 122/58 L 123/65 Pulse Oximetry 04/08/21 18:15 04/08/21 18:30 04/08/21 18:45 Temperature Pulse Rate 85 83 129 H Respiratory Rate Blood Pressure 121/26 L 119/72 102/56 L Pulse Oximetry 04/08/21 19:02 04/08/21 19:15 04/08/21 19:52 Temperature 36.6 C Pulse Rate 95 85 Respiratory Rate 18 Blood Pressure 107/67 110/72 Pulse Oximetry 99 04/08/21 20:00 04/08/21 22:00 04/08/21 23:58 Temperature 36.8 C Pulse Rate 99 78 Respiratory Rate 21 H Blood Pressure 104/87 Pulse Oximetry 100 100 04/09/21 00:00 04/09/21 01:49 CDT 04/09/21 03:42 Temperature 36.9 C Pulse Rate 88 98 Respiratory Rate 21 H Blood Pressure 110/86 Pulse Oximetry 99 100 04/09/21 04:00 04/09/21 06:00 04/09/21 08:00 Temperature 36.6 C 36.7 C Pulse Rate 93 90 80 Respiratory Rate 20 22 H Blood Pressure 101/65 130/78 Pulse Oximetry 100 99 04/09/21 09:02 04/09/21 09:28 Temperature 36.7 C Pulse Rate 109 H 80 Respiratory Rate 22 H Blood Pressure 130/78 Pulse Oximetry 96 Intake/Output Intake/Output: Intake & Output 04/06/21 04/07/21 04/08/21 04/09/21 23:59 23:59 23:59 22:59 Intake Total 368 1120 200 Output Total 3150 2250 50 Balance -2782 -1130 150 Meds/Results Medications: Active Medications Generic Name Dose Route Start Last Admin Trade Name Freq PRN Reason Stop Dose Admin Hydrocodone Bitart/Acetaminophen 1 tab 04/07/21 11:15 04/07/21 22:10 Hydrocodone/Acetaminophen (*Crx) 5-325 Mg Tablet PO 1 tab QID PRN Administration Pain Amiodarone HCl 400 mg 04/08/21 09:00 04/09/21 09:02 Amiodarone Hcl 200 Mg Tablet PO 400 mg DAILY@0800 LYNNE Administration Apixaban 2.5 mg 04/07/21 21:00 04/09/21 09:02 Apixaban 2.5 Mg Tablet PO 2.5 mg Q12HR LYNNE Administration Bumetanide 1 mg 04/07/21 11:15 04/09/21 09:02 Bumetanide 1 Mg Tablet PO 1 mg Q12HR LYNNE Administration Clonazepam 1 mg 04/07/21 11:15 Clonazepam (*Crx) 0.5 Mg Tablet PO TID PRN Anxiety Docusate Sodium 100 mg 04/07/21 21:00 04/09/21 09:02 Docusate Sodium 100 Mg Capsule PO 100 mg Q12HR LYNNE Administration Sevelamer Carbonate 800 mg 04/07/21 12:00 04/09/21 09:02 Sevelamer Carbonate 800 Mg Tablet PO 800 mg TIDWM LYNNE Administration Radiology Results: ITS Impressions Chest X-Ray 04/07/21 07:45 IMPRESSION: 1. Pulmonary vascular congestion with mild pulmonary edema versus less likely pneumonia in the right lower lung zone. 2. Small bilateral pleural effusions. 3. Cardiomegaly. Labs Labs: Laboratory Results - last 24 hr 04/09/21 04/09/21 04:26 04:26 WBC 7.2 RBC 3.18 L Hgb 9.8 L Hct 33.5 L MCV 105.3 H MCH 30.8 MCHC 29.3 L RDW 14.6 H Plt Count 228 MPV 9.6 Immature Gran % (Auto) 0.4 Neut % (Auto) 72.8 Lymph % (Auto) 13.4 L [place] % (Auto) 8.2 Eos % (Auto) 4.2 Baso % (Auto) 1
--- NOTE | 2021-04-09 09:35 | PM.PNNEP ---
Progress Note: A&P Assessment and Plan (1) Left bundle branch block: Code(s): I44.7 - Left bundle-branch block, unspecified Status: Acute (2) Atrial flutter with rapid ventricular response: Code(s): I48.92 - Unspecified atrial flutter Status: Acute (3) Elevated troponin: Code(s): R77.8 - Other specified abnormalities of plasma proteins Status: Acute (4) Chronic anticoagulation: Code(s): Z79.01 - terminal make up operator (current) use of anticoagulants Status: Acute (5) Right leg DVT: Code(s): I82.401 - Acute embolism and thrombosis of unspecified deep veins of right lower extremity Status: Acute (6) End-stage renal disease (ESRD): Code(s): N18.6 - End stage renal disease Status: Acute (7) Diastolic congestive heart failure, NYHA class 2: Code(s): I50.30 - Unspecified diastolic (congestive) heart failure Status: Acute (8) Anemia in chronic kidney disease: Code(s): N18.9 - Chronic kidney disease, unspecified; D63.1 - Anemia in chronic kidney disease Status: Acute (9) Obesity: Code(s): E66.9 - Obesity, unspecified Status: Acute (10) Coagulopathy: Code(s): D68.9 - Coagulation defect, unspecified Status: Acute (11) Thoracic aortic aneurysm without rupture: Code(s): I71.2 - Thoracic aortic aneurysm, without rupture Status: Acute (12) Atrial fibrillation: Code(s): I48.91 - Unspecified atrial fibrillation Status: Acute (13) Pulmonary vascular congestion: Code(s): R09.89 - Other specified symptoms and signs involving the circulatory and respiratory systems Status: Acute (14) Acute dyspnea: Code(s): R06.00 - Dyspnea, unspecified Status: Acute (15) Allergic pharyngitis: Code(s): J02.9 - Acute pharyngitis, unspecified Status: Acute Additional Plan 1. hd tomorrow 2. eval for home oxygen therapy 3. resume CLARITIN 10MG/DAY- THIS HAS CONTROLLED HER THROAT/ NECK SWELLING IN THE PAST 4. PT DECLINES ANY FURTHER CARDIAC EXAM Time Spent With Patient Time with patient: 15 - 25 minutes Subjective Date/time seen: 04/09/21 09:35 pt says she was very sob without oxygen and even her throat swelled again/ neck swelling. She has this side effect several times in the past but controlled with CLARITIN- so i suspect some sort of allergic upper resp reaction. Requesting home oxygen Exam Const: General: cooperative, healthy appearing, comfortable and no acute distress Neck: Other: no stridor on neck exam Chest: Chest palpation & inspection: normal inspection of the chest (x has right ij tunneled dialysis line without infection signs) Resp: Auscultation: rales (tr rales in rll but air movement is much more improved throughout) Cardio: Heart sounds: Abnormal heart opening sounds (irreg irreg c/w afib) Peripheral pulses: Peripheral pulses 2+ throughout Other: woody edema chronic to bilat legs is sig improved GI: Inspection: normal to inspection Psych: Appearance: grossly normal and well kempt Mental Status: mental status grossly normal Affect: normal affect Thought process: Normal thought process present Thought content: Yes Normal thought content present Insight: Good insight present (Psych) Judgement: Good judgement present (Psych) Objective Data Vital Signs Vital Signs: Vital Signs - 24 hr 04/08/21 10:42 04/08/21 11:58 04/08/21 12:00 Temperature Pulse Rate 115 H 84 81 Respiratory Rate Blood Pressure Pulse Oximetry 100 04/08/21 12:16 04/08/21 14:00 04/08/21 15:50 Temperature 35.8 C L 35.6 C L Pulse Rate 82 112 H 112 H Respiratory Rate 20 20 Blood Pressure 132/96 H 107/79 Pulse Oximetry 100 95 04/08/21 16:00 04/08/21 16:10 04/08/21 16:30 Temperature 36.8 C Pulse Rate 124 H 102 H 82 Respiratory Rate 18 Blood Pressure 140/62 139/82 109/71 Pulse Oximetry 04/08/21 16:45 04/08/21 17:00 04/08/21 17:15 Tempera
[2021-04-09] MEDS: LORATADINE 10 MG TABLET PO (13:14)
--- NOTE | 2021-04-09 14:27 | PM.IMPN ---
Progress Note: A&P Assessment and Plan (1) Obesity: Code(s): E66.9 - Obesity, unspecified Status: Acute (2) Right leg DVT: Code(s): I82.401 - Acute embolism and thrombosis of unspecified deep veins of right lower extremity Status: Acute (3) Thoracic aortic aneurysm without rupture: Code(s): I71.2 - Thoracic aortic aneurysm, without rupture Status: Acute (4) Anemia in chronic kidney disease: Code(s): N18.9 - Chronic kidney disease, unspecified; D63.1 - Anemia in chronic kidney disease Status: Acute (5) Diastolic congestive heart failure, NYHA class 2: Code(s): I50.30 - Unspecified diastolic (congestive) heart failure Status: Acute (6) Atrial fibrillation: Code(s): I48.91 - Unspecified atrial fibrillation Status: Acute (7) End-stage renal disease (ESRD): Code(s): N18.6 - End stage renal disease Status: Acute (8) Pulmonary vascular congestion: Code(s): R09.89 - Other specified symptoms and signs involving the circulatory and respiratory systems Status: Acute (9) Acute dyspnea: Code(s): R06.00 - Dyspnea, unspecified Status: Acute Additional Plan # Shortness of breath sudden onset: Tachycardic on presentation with hypertension. EKG A flutter with rapid ventricular rate rates in 120s. Chest x-ray with pulmonary vascular congestion with mild pulmonary edema less likely pneumonia in the right lower lung zone small bilateral pleural effusion with cardiomegaly. Initial troponin elevated at 0.084. Repeat up at 0.156. No chest pain reported. Likely due to congestive heart failure. She was dialyzed yesterday and plan to do again today. Her troponin continue to elevate and hence Cardiology was consulted however patient had no chest pain and she refused any further cardiac workup while inpatient. She is advised to follow up with her regular flat grinder operator after discharge from this hospital. Repeat chest x-ray today with less congestion formal read pending. Home O2 evaluation is ordered however no hypoxia noted for her to qualify for home oxygen. She is still intermittently tachycardic with atrial flutter/fibrillation. Amiodarone dose has been increased for this. # Mild anemia likely anemia chronic disease due to underlying end-stage renal disease # end-stage renal disease on hemodialysis since December 2020 a right IJ line. AVF maturing not yet used # previously on peritoneal dialysis failed due to Klebsiella peritonitis then fungal peritonitis in NovemberDecember 2020 # diastolic congestive heart failure acute on chronic on Bumex at home which is resumed. Chest x-ray today with improved congestion # atrial fibrillation with rapid ventricular rate likely due to pulmonary edema resume home medication and monitor amiodarone dose increased per Cardiology May add Bystolic will clarify with daughter if she was taking this. Contacted [facility] however did not pharmacy picking technician the phone. Left a voice message is # thoracic aortic aneurysm # history of right DVT on Eliquis initially on Coumadin however was difficult to regulate INR while on Coumadin # obesity # DVT prophylaxis already on Eliquis which is resumed Subjective Date/time seen: 04/09/21 14:27 Interval history: She reports she had some difficulty and swelling in her throat which resolved with oxygen placement and wants to have oxygen at home. Her heart rate is still not well controlled. She the reports shortness of breath has improved. Denies any chest pain. Review of Systems Review of Systems: All systems reviewed & are unremarkable except as noted in HPI and below Exam Narrative: General: alert, afebrile, not in acute distress Head: normocephalic, atraumatic Eyes: EOMI bilaterally, anicteric, no injection ENT: moist mucous membranes, oropharynx patent, no rhinorrhea Neck: supple, trachea midline, +JVD Chest: equal chest rise bilaterally, no chest wall trauma noted Lung
[2021-04-09] MEDS: NEBIVOLOL HCL 5 MG TABLET 10 MG PO (18:27)
[2021-04-09] MEDS: PRAVASTATIN SODIUM 20 MG TABLET 40 MG PO (22:04)
[2021-04-10] VITALS (27 sets, daily range): BP systolic 81–125; BP diastolic 37–65; PULSE 50–109; RESP 16–21; TEMP 35.5–36.6; O2SAT 94–100
[2021-04-10] MEDS: HYDROcodone/acetaminophen (*CRX) 5-325 MG TABLET 1 TAB PO ×2 (01:24→14:23)
[2021-04-10 04:54] LABS: Basophils Absolute Auto 0.1 K/mm3 (0.0-0.1); Basophils Percent Auto 0.8 % (0.2-1.2); Eosinophils Absolute Auto 0.4 K/mm3 (0-0.3); Eosinophils Percent Auto 4.7 % (0-4.4); Hematocrit 30.6 % (37.0-47.0); Hemoglobin 9.2 g/dL (12.0-15.0); Immature Granulocyte Absolute 0.03 K/mm3 (0.00-0.031); Immature Granulocyte Percent A 0.4 % (0-0.5); Mean Corpuscular HGB Conc 30.1 g/dl (32-36); Mean Corpuscular Hemoglobin 31.3 pg (26-34); Mean Corpuscular Volume 104.1 fl (80-100); Mean Platelet Volume 9.2 fl (7.4-10.4); Monocytes Absolute Auto 0.6 K/mm3 (0.1-0.6); Monocytes Percent Auto 7.7 % (2.6-8.5); Neutrophils Absolute Auto 5.3 K/mm3 (1.3-6.7); Neutrophils Percent Auto 70.4 % (45.5-73.1); Platelet Count Result 236 k/mm3 (150-375); Red Blood Count 2.94 M/mm3 (4.2-5.4); Red Cell Distribution Width 14.6 % (11.5-14.5); White Blood Count 7.5 K/mm3 (4.5-10.0)
[2021-04-10 05:14] LABS: Anion Gap 11 mmol/L (8-16); Blood Urea Nitrogen 53 mg/dL (7-17); Calcium 9.3 mg/dL (8.4-10.2); Carbon Dioxide 30 mmol/L (22-30); Chloride 94 mmol/L (98-107); Estimated CRCL calculation 7 ml/min; Estimated Glomerular Filt Rate 5; Glucose 94 mg/dL (65-110); Sodium 135 mmol/L (137-145)
[2021-04-10] MEDS: DOCUSATE SODIUM 100 MG CAPSULE PO ×2 (08:53→19:59)
[2021-04-10] MEDS: SEVELAMER CARBONATE 800 MG TABLET PO ×2 (08:53→17:05)
[2021-04-10] MEDS: APIXABAN 2.5 MG TABLET PO ×2 (08:54→19:59)
[2021-04-10] MEDS: AMIODARONE HCL 200 MG TABLET 400 MG PO (08:54)
[2021-04-10] MEDS: LORATADINE 10 MG TABLET PO (08:54)
[2021-04-10] MEDS: BUMETANIDE 1 MG TABLET PO ×2 (08:54→19:59)
[2021-04-10] MEDS: SODIUM CHLORIDE 0.9% IV 1,000 ML 100 ML IV CONT (09:00)
[2021-04-10] MEDS: SODIUM CHLORIDE 0.9% IV 1,000 ML 999 ML IV CONT (10:30)
[2021-04-10] MEDS: EPOETIN ALFA-EPBX 10,000 UNITS/ML VIAL 10000 UNITS IV PUSH (12:45)
--- NOTE | 2021-04-10 14:28 | PM.PNCARD ---
Progress Note: A&P Assessment and Plan (1) Atrial flutter with rapid ventricular response: Code(s): I48.92 - Unspecified atrial flutter Status: Acute Assessment and Plan: Chronicity unknown but given use of amiodarone suspect this is not a new issue. Patient predominantly in atrial flutter with variable AV block and RVR. Caution with regards to risk for tachy-cory particularly underlying left bundle-branch block. Heart rate had previously been uncontrolled but today telemetry demonstrated atrial flutter with slow ventricular response, pauses (less than 4 seconds), conversion to sinus cory. She is currently in sinus cory. Nebivolol was hel this a.m. due to bradycardia and pauses. Will discontinue he nebivolol - spoke with patient's daughter in law who states paient has been off the nebivolol fo about a month. Recommend Amiodarone 400 mg daily for the next 3 days then reduce to 200 mg daily. Further management in this regard as an outpatient per her Tape Recording Machine Operator. Pt improved on Amiodarone 400mg daily for now. Disposition per hospitalist service. (2) Elevated troponin: Code(s): R77.8 - Other specified abnormalities of plasma proteins Status: Acute Assessment and Plan: Most likely type 2 infarct not secondary to acute coronary syndrome and/or plaque rupture related to acute heart failure with reduced ejection fraction, elevated BP, underlying atrial tachyarrhythmia, and end-stage renal disease. Cannot exclude underlying CAD, however. Patient declined ischemic workup at this time. (3) Acute dyspnea: Code(s): R06.00 - Dyspnea, unspecified Status: Acute Assessment and Plan: Patient presents volume overload with heart failure with preserved ejection fraction as above in atrial flutter with RVR, uncontrolled hypertension improved with diuretic, hemodialysis and BP control. Continue diuretic therapy with Bumex. Patient appears to be relatively euvolemic at this time after hemodialysis today. She is hemodynamically stable. Home O2 eval. (4) Left bundle branch block: Code(s): I44.7 - Left bundle-branch block, unspecified Status: Acute Assessment and Plan: Likely chronic. As above, caution with regards to AV chago blocking agents, antiarrhythmic therapy and underlying conduction abnormality. However, need to control heart rate with observation at this time. (5) Right leg DVT: Code(s): I82.401 - Acute embolism and thrombosis of unspecified deep veins of right lower extremity Status: Acute Assessment and Plan: Continue systemic anticoagulation Eliquis 2.5 mg twice daily. (6) Anemia in chronic kidney disease: Code(s): N18.9 - Chronic kidney disease, unspecified; D63.1 - Anemia in chronic kidney disease Status: Acute Assessment and Plan: Hemoglobin 10.4. Follow H&H. No evidence of bleeding at this time. (7) End-stage renal disease (ESRD): Code(s): N18.6 - End stage renal disease Status: Acute Assessment and Plan: Hemodialysis per Nephrology. (8) Chronic anticoagulation: Code(s): Z79.01 - [facility] (current) use of anticoagulants Status: Acute Assessment and Plan: Continue Eliquis q.12 hours. Subjective Date/time seen: 04/10/21 14:28 Review of Systems Review of Systems: All systems reviewed & are unremarkable except as noted in HPI and below Constitutional: Constitutional: Reports as per HPI and Reports no additional constitutional complaints Eyes: Eyes: Reports as per HPI and Reports no additional eye complaints ENT: Reports system reviewed and no additional complaints, except as documented and Reports as per HPI Cardiovascular: Cardiovascular: Reports as per HPI, Reports no additional cardiovascular complaints, Denies chest pain, Denies diaphoresis, Reports pedal edema, Reports leg edema, Denies lightheadedness, Denies palpitations, Reports dyspnea and Reports
--- NOTE | 2021-04-10 17:15 | PM.IMPN ---
Progress Note: A&P Assessment and Plan (1) Obesity: Code(s): E66.9 - Obesity, unspecified Status: Acute (2) Right leg DVT: Code(s): I82.401 - Acute embolism and thrombosis of unspecified deep veins of right lower extremity Status: Acute (3) Thoracic aortic aneurysm without rupture: Code(s): I71.2 - Thoracic aortic aneurysm, without rupture Status: Acute (4) Anemia in chronic kidney disease: Code(s): N18.9 - Chronic kidney disease, unspecified; D63.1 - Anemia in chronic kidney disease Status: Acute (5) Diastolic congestive heart failure, NYHA class 2: Code(s): I50.30 - Unspecified diastolic (congestive) heart failure Status: Acute (6) Atrial fibrillation: Code(s): I48.91 - Unspecified atrial fibrillation Status: Acute (7) End-stage renal disease (ESRD): Code(s): N18.6 - End stage renal disease Status: Acute (8) Pulmonary vascular congestion: Code(s): R09.89 - Other specified symptoms and signs involving the circulatory and respiratory systems Status: Acute (9) Acute dyspnea: Code(s): R06.00 - Dyspnea, unspecified Status: Acute Additional Plan # Shortness of breath sudden onset: Tachycardic on presentation with hypertension. EKG A flutter with rapid ventricular rate rates in 120s. Chest x-ray with pulmonary vascular congestion with mild pulmonary edema less likely pneumonia in the right lower lung zone small bilateral pleural effusion with cardiomegaly. Initial troponin elevated at 0.084. Repeat up at 0.156. No chest pain reported. Likely due to congestive heart failure. She was dialyzed yesterday and plan to do again today. Her troponin continue to elevate and hence Cardiology was consulted however patient had no chest pain and she refused any further cardiac workup while inpatient. She is advised to follow up with her regular mortgage operations manager after discharge from this hospital. Repeat chest x-ray today with less congestion formal read pending. Home O2 evaluation is ordered however no hypoxia noted for her to qualify for home oxygen. She is still intermittently tachycardic with atrial flutter/fibrillation. Amiodarone dose has been increased for this. Added Bystolic 10 mg yesterday which led to a fibrillation with slow ventricular rate drop and has has been held. Bystolic at pain on hold per daughter since a month now of gets down Her symptoms suggestive of tachy-cory syndrome. Watch her home her off nebivolol and continued on amiodarone higher dose as planned by Cardiology Anticipated discharge in the morning if heart rate stable Home oxygen evaluation in the morning however doubt she will qualify as she has never been hypoxic # Mild anemia likely anemia chronic disease due to underlying end-stage renal disease # end-stage renal disease on hemodialysis since December 2020 a right IJ line. AVF maturing not yet used # previously on peritoneal dialysis failed due to Klebsiella peritonitis then fungal peritonitis in NovemberDecember 2020 # diastolic congestive heart failure acute on chronic on Bumex at home which is resumed. Chest x-ray with improved congestion # atrial fibrillation with rapid ventricular rate likely due to pulmonary edema resume home medication and monitor amiodarone dose increased per Cardiology May add Shital will clarify with daughter if she was taking this. Contacted [employer] however did not picket labor union the phone. Left a voice message 04/09/2021 # thoracic aortic aneurysm # history of right DVT on Eliquis initially on Coumadin however was difficult to regulate INR while on Coumadin # obesity # DVT prophylaxis already on Eliquis which is resumed Subjective Date/time seen: 04/10/21 17:15 Interval history: 04/10/2021 overnight events noted she received a dose of nebivolol yesterday. She had bradycardic episodes overnight. Carol think 39-40 beats per minute. She denies any symptoms with these bradyca
[2021-04-10] MEDS: PRAVASTATIN SODIUM 20 MG TABLET 40 MG PO (19:59)
[2021-04-10] MEDS: polyethylene glycoL 3350 17 GM POWD.PACK PO (19:59)
--- NOTE | 2021-04-10 23:17 | PM.PNNEP ---
Progress Note: A&P Assessment and Plan (1) Allergic pharyngitis: Code(s): J02.9 - Acute pharyngitis, unspecified Status: Acute (2) Left bundle branch block: Code(s): I44.7 - Left bundle-branch block, unspecified Status: Acute (3) Atrial flutter with rapid ventricular response: Code(s): I48.92 - Unspecified atrial flutter Status: Acute (4) Elevated troponin: Code(s): R77.8 - Other specified abnormalities of plasma proteins Status: Acute (5) Chronic anticoagulation: Code(s): Z79.01 - manager intermediate (current) use of anticoagulants Status: Acute (6) Right leg DVT: Code(s): I82.401 - Acute embolism and thrombosis of unspecified deep veins of right lower extremity Status: Acute (7) End-stage renal disease (ESRD): Code(s): N18.6 - End stage renal disease Status: Acute (8) Diastolic congestive heart failure, NYHA class 2: Code(s): I50.30 - Unspecified diastolic (congestive) heart failure Status: Acute (9) Anemia in chronic kidney disease: Code(s): N18.9 - Chronic kidney disease, unspecified; D63.1 - Anemia in chronic kidney disease Status: Acute (10) Obesity: Code(s): E66.9 - Obesity, unspecified Status: Acute (11) Coagulopathy: Code(s): D68.9 - Coagulation defect, unspecified Status: Acute (12) Thoracic aortic aneurysm without rupture: Code(s): I71.2 - Thoracic aortic aneurysm, without rupture Status: Acute (13) Atrial fibrillation: Code(s): I48.91 - Unspecified atrial fibrillation Status: Acute (14) Pulmonary vascular congestion: Code(s): R09.89 - Other specified symptoms and signs involving the circulatory and respiratory systems Status: Acute (15) Acute dyspnea: Code(s): R06.00 - Dyspnea, unspecified Status: Acute Additional Plan 1. hd mwf 2. eval for home oxygen therapy 3. cont w current meds. overall sig improved. Subjective Date/time seen: 04/10/21 10:17 no further episodes of throat/ neck swelling Exam Const: General: no acute distress Resp: Effort & Inspection: normal respiratory effort Auscultation: clear to auscultation bilaterally Cardio: Rhythm: abnormal rhythm (c/w known afib) irregularly irregular Peripheral pulses: other (le edema is improved) Objective Data Vital Signs Vital Signs: Vital Signs - 24 hr 04/10/21 00:00 04/10/21 04:00 04/10/21 07:31 Temperature 36.0 C L 36.1 C L Pulse Rate 76 73 80 Respiratory Rate 20 20 Blood Pressure 96/51 L 100/62 Pulse Oximetry 100 96 04/10/21 08:00 04/10/21 09:35 04/10/21 09:38 Temperature 36.6 C Pulse Rate 62 87 70 Respiratory Rate 18 Blood Pressure 88/65 L 93/49 L Pulse Oximetry 94 04/10/21 09:45 04/10/21 10:00 04/10/21 10:15 Temperature Pulse Rate 65 65 65 Respiratory Rate Blood Pressure 102/52 L 83/42 L 81/43 L Pulse Oximetry 04/10/21 10:30 04/10/21 10:45 04/10/21 11:00 Temperature Pulse Rate 57 L 57 L 55 L Respiratory Rate Blood Pressure 102/37 L 103/52 L 91/56 L Pulse Oximetry 04/10/21 11:15 04/10/21 11:30 04/10/21 11:45 Temperature Pulse Rate 60 61 61 Respiratory Rate Blood Pressure 95/53 L 114/58 L 105/61 Pulse Oximetry 04/10/21 12:00 04/10/21 12:15 04/10/21 12:30 Temperature Pulse Rate 61 51 L 51 L Respiratory Rate Blood Pressure 100/64 112/57 L 122/57 L Pulse Oximetry 04/10/21 12:45 04/10/21 13:00 04/10/21 13:07 Temperature Pulse Rate 50 L 50 L 50 L Respiratory Rate Blood Pressure 102/52 L 93/51 L 88/46 L Pulse Oximetry 04/10/21 13:17 04/10/21 14:07 04/10/21 16:00 Temperature 36.3 C L 36.1 C L Pulse Rate 52 L 109 H 54 L Respiratory Rate 18 16 Blood Pressure 118/58 L 125/65 Pulse Oximetry 100 04/10/21 20:00 04/10/21 20:46 04/10/21 22:00 Temperature 36.1 C L Pulse Rate 56 L 56 L 57 L Respiratory Rate 18 18 21 H Blood Pressure 11
[2021-04-11] VITALS (14 sets, daily range): BP systolic 93–122; BP diastolic 42–56; PULSE 55–96; RESP 17–22; TEMP 36.1–36.6; O2SAT 91–99
[2021-04-11 05:47] LABS: Basophils Absolute Auto 0.1 K/mm3 (0.0-0.1); Basophils Percent Auto 0.8 % (0.2-1.2); Eosinophils Absolute Auto 0.4 K/mm3 (0-0.3); Eosinophils Percent Auto 6.1 % (0-4.4); Hematocrit 32.7 % (37.0-47.0); Hemoglobin 9.8 g/dL (12.0-15.0); Immature Granulocyte Absolute 0.03 K/mm3 (0.00-0.031); Immature Granulocyte Percent A 0.5 % (0-0.5); Lymphocytes Percent Auto 15.1 % (18.3-44.2); Mean Corpuscular Hemoglobin 31.4 pg (26-34); Mean Corpuscular Volume 104.8 fl (80-100); Mean Platelet Volume 9.4 fl (7.4-10.4); Monocytes Absolute Auto 0.6 K/mm3 (0.1-0.6); Monocytes Percent Auto 9.6 % (2.6-8.5); Neutrophils Percent Auto 67.9 % (45.5-73.1); Platelet Count Result 197 k/mm3 (150-375); Red Blood Count 3.12 M/mm3 (4.2-5.4); Red Cell Distribution Width 14.5 % (11.5-14.5)
[2021-04-11 06:12] LABS: Anion Gap 10 mmol/L (8-16); Blood Urea Nitrogen 32 mg/dL (7-17); Calcium 9.3 mg/dL (8.4-10.2); Carbon Dioxide 31 mmol/L (22-30); Chloride 96 mmol/L (98-107); Estimated CRCL calculation 9 ml/min; Estimated Glomerular Filt Rate 8; Glucose 88 mg/dL (65-110); Potassium 3.9 mmol/L (3.4-5.0); Sodium 137 mmol/L (137-145)
--- NOTE | 2021-04-11 08:30 | PM.PNCARD ---
Progress Note: A&P Assessment and Plan (1) Atrial flutter with rapid ventricular response: Code(s): I48.92 - Unspecified atrial flutter Status: Acute Assessment and Plan: Chronicity unknown but given use of amiodarone suspect this is not a new issue. Patient predominantly in atrial flutter with variable AV block and RVR. Caution with regards to risk for tachy-cory particularly underlying left bundle-branch block. Heart rate had previously been uncontrolled but today telemetry demonstrated atrial flutter with slow ventricular response, pauses (less than 4 seconds), conversion to sinus cory. She is currently in sinus cory/sinus rhythm. Nebivolol has been discontinued. Will decrease amiodarone to 200 mg daily. Further management in this regard as an outpatient per her Change Booth Attendant. Disposition per hospitalist service. (2) Elevated troponin: Code(s): R77.8 - Other specified abnormalities of plasma proteins Status: Acute Assessment and Plan: Most likely type 2 infarct not secondary to acute coronary syndrome and/or plaque rupture related to acute heart failure with reduced ejection fraction, elevated BP, underlying atrial tachyarrhythmia, and end-stage renal disease. Cannot exclude underlying CAD, however. Patient declined ischemic workup at this time. (3) Acute dyspnea: Code(s): R06.00 - Dyspnea, unspecified Status: Acute Assessment and Plan: Patient presents volume overload with heart failure with preserved ejection fraction as above in atrial flutter with RVR, uncontrolled hypertension improved with diuretic, hemodialysis and BP control. Continue diuretic therapy with Bumex. Patient appears to be relatively euvolemic at this time after hemodialysis today. She is hemodynamically stable. Home O2 eval. (4) Left bundle branch block: Code(s): I44.7 - Left bundle-branch block, unspecified Status: Acute Assessment and Plan: Likely chronic. As above, caution with regards to AV chago blocking agents, antiarrhythmic therapy and underlying conduction abnormality. However, need to control heart rate with observation at this time. (5) Right leg DVT: Code(s): I82.401 - Acute embolism and thrombosis of unspecified deep veins of right lower extremity Status: Acute Assessment and Plan: Continue systemic anticoagulation Eliquis 2.5 mg twice daily. (6) Anemia in chronic kidney disease: Code(s): N18.9 - Chronic kidney disease, unspecified; D63.1 - Anemia in chronic kidney disease Status: Acute Assessment and Plan: Hemoglobin 10.4. Follow H&H. No evidence of bleeding at this time. (7) End-stage renal disease (ESRD): Code(s): N18.6 - End stage renal disease Status: Acute Assessment and Plan: Hemodialysis per Nephrology. (8) Chronic anticoagulation: Code(s): Z79.01 - skilled nursing (current) use of anticoagulants Status: Acute Assessment and Plan: Continue Eliquis q.12 hours. Subjective Date/time seen: 04/11/21 08:30 Cardiology follow up for Afib RVR Interval history: Date of service 04/11/2021: Feeling well this morning and doesn't have complaints of ay kind. Remains in sinus bradycardia/normal sinus rhythm with some PVC's noted on telemetry overnight. Review of Systems Review of Systems: All systems reviewed & are unremarkable except as noted in HPI and below Constitutional: Constitutional: Reports as per HPI and Reports no additional constitutional complaints Eyes: Eyes: Reports as per HPI and Reports no additional eye complaints ENT: Reports system reviewed and no additional complaints, except as documented and Reports as per HPI Cardiovascular: Cardiovascular: Reports as per HPI, Reports no additional cardiovascular complaints, Denies chest pain, Denies diaphoresis, Reports pedal edema, Reports leg edema, Denies lightheadedness, Denies palpitations, Reports dyspnea and
[2021-04-11] MEDS: LORATADINE 10 MG TABLET PO (10:21)
[2021-04-11] MEDS: DOCUSATE SODIUM 100 MG CAPSULE PO ×2 (10:21→20:37)
[2021-04-11] MEDS: AMIODARONE HCL 200 MG TABLET PO (10:21)
[2021-04-11] MEDS: APIXABAN 2.5 MG TABLET PO ×2 (10:21→20:37)
[2021-04-11] MEDS: SEVELAMER CARBONATE 800 MG TABLET PO ×3 (10:21→17:13)
--- NOTE | 2021-04-11 14:58 | PM.IMPN ---
Progress Note: A&P Assessment and Plan (1) Obesity: Code(s): E66.9 - Obesity, unspecified Status: Acute (2) Right leg DVT: Code(s): I82.401 - Acute embolism and thrombosis of unspecified deep veins of right lower extremity Status: Acute (3) Thoracic aortic aneurysm without rupture: Code(s): I71.2 - Thoracic aortic aneurysm, without rupture Status: Acute (4) Anemia in chronic kidney disease: Code(s): N18.9 - Chronic kidney disease, unspecified; D63.1 - Anemia in chronic kidney disease Status: Acute (5) Diastolic congestive heart failure, NYHA class 2: Code(s): I50.30 - Unspecified diastolic (congestive) heart failure Status: Acute (6) Atrial fibrillation: Code(s): I48.91 - Unspecified atrial fibrillation Status: Acute (7) End-stage renal disease (ESRD): Code(s): N18.6 - End stage renal disease Status: Acute (8) Pulmonary vascular congestion: Code(s): R09.89 - Other specified symptoms and signs involving the circulatory and respiratory systems Status: Acute (9) Acute dyspnea: Code(s): R06.00 - Dyspnea, unspecified Status: Acute Additional Plan # patient concerned that without oxygen use she will have ?neck swelling again?. I believe her neck swelling is due to postnasal drip and inflammation of her lymph nodes in her neck. I believe that the oxygen has been drying her out so she does not have any more postnasal drip. She has been started on Claritin by her cutter out who states she is normally on this when she developed some neck swelling. The patient and her daughter both agree with starting this medication and her history of neck swelling. Patient daughter are concerned with discharge at this time and having an episode of neck swelling over night and having to come back to the emergency room. I will continue monitoring her breathing and vitals overnight. I have continue Claritin, order Flonase q.12 hours and a p.r.n. Scolamine patch if she continues to have drainage or neck swelling. The patient is feeling well tomorrow without any more issues while off oxygen she can be discharged home after dialysis. Trying to contact her Hearing Aid Assistant about needing dialysis tomorrow. # diastolic congestive heart failure acute on chronic on Bumex at home which is resumed. Chest x-ray with improved congestion. Still having some crackles bilaterally. Wonder if she needs more fluid removed from dialysis tomorrow vs IV diuresis. Will talk with Nephrology. # Shortness of breath sudden onset: Tachycardic on presentation with hypertension. EKG A flutter with rapid ventricular rate rates in 120s. Chest x-ray with pulmonary vascular congestion with mild pulmonary edema less likely pneumonia in the right lower lung zone small bilateral pleural effusion with cardiomegaly. Initial troponin elevated at 0.084. Repeat up at 0.156. No chest pain reported. Likely due to congestive heart failure. She was dialyzed yesterday and plan to do again today. Her troponin continue to elevate and hence Cardiology was consulted however patient had no chest pain and she refused any further cardiac workup while inpatient. She is advised to follow up with her regular e learning developer after discharge from this hospital. Repeat chest x-ray today with less congestion formal read pending. Home O2 evaluation was ordered and she does not require any oxygen at rest or with exertion. She is still intermittently tachycardic with atrial flutter/fibrillation. Cardiology had increased her amiodarone to 400 mg daily, and today it is decreased down to 200 mg which she will be discharged on. Bystolic had been discontinued by Cardiology. She is not having any more symptoms of tachy-cory syndrome in cardiology feels comfortable with where she is at this time. She will need to follow-up with her e learning developer after discharge. # Mild anemia likely anemia chronic disease due to underlying
--- NOTE | 2021-04-11 15:21 | PCRCNOTE ---
HOME O2 EVAL COMPLETED. NO HOME O2 NEEDED AT THIS TIME, PT USED WHEELED WALKER, MILD SOB, APPROX 80-100 FEET
--- NOTE | 2021-04-11 17:57 | PC.NURSE ---
Called Dr. Gaspar exchanged at [phone] to try to reach her for dialysis orders, awaiting a return call.
[2021-04-11] MEDS: FLUTICASONE PROPIONATE 0.05% NA SPR 16 GM BTL (*BKC) 1 SPRAY NASAL (20:37)
[2021-04-11] MEDS: BUMETANIDE 1 MG TABLET PO (20:37)
[2021-04-11] MEDS: PRAVASTATIN SODIUM 20 MG TABLET 40 MG PO (20:37)
[2021-04-11] MEDS: SCOPOLAMINE 1.5 MG PATCH TRANSDERM (20:38)
[2021-04-12] VITALS (22 sets, daily range): BP systolic 79–150; BP diastolic 24–90; PULSE 55–99; RESP 16–18; TEMP 35.5–36.6; O2SAT 96–100
[2021-04-12 06:01] LABS: Hematocrit 30.5 % (37.0-47.0); Hemoglobin 9.3 g/dL (12.0-15.0); Mean Corpuscular HGB Conc 30.5 g/dl (32-36); Mean Corpuscular Hemoglobin 31.4 pg (26-34); Mean Platelet Volume 9.4 fl (7.4-10.4); Platelet Count Result 209 k/mm3 (150-375); Red Blood Count 2.96 M/mm3 (4.2-5.4); Red Cell Distribution Width 14.2 % (11.5-14.5); White Blood Count 6.4 K/mm3 (4.5-10.0)
[2021-04-12 06:23] LABS: Albumin Level 3.6 g/dL (3.5-5.1); Anion Gap 10 mmol/L (8-16); Blood Urea Nitrogen 45 mg/dL (7-17); Calcium 9.5 mg/dL (8.4-10.2); Carbon Dioxide 31 mmol/L (22-30); Chloride 95 mmol/L (98-107); Estimated CRCL calculation 7 ml/min; Estimated Glomerular Filt Rate 6; Glucose 84 mg/dL (65-110); Phosphorus 5.2 mg/dL (2.5-4.5); Potassium 3.8 mmol/L (3.4-5.0); Sodium 136 mmol/L (137-145)
--- NOTE | 2021-04-12 10:42 | PM.DS ---
DS: Admitting Diagnosis Discharge Date 04/12/21 Admitting Diagnosis SOB DS: Discharge Diagnosis Discharge Diagnosis (1) Pulmonary vascular congestion: Code(s): R09.89 - Other specified symptoms and signs involving the circulatory and respiratory systems Status: Acute Assessment and Plan: The patient is a 76 year old female with history of ESRD, dialysis MWF presents to the ED with sudden onset of shortness of breath that started last night that woke her up from her sleep. Initial vitals showed elevated BP 159/111, tachycardic HR 121, Tachypenic 23, afebrile, O2 RA. Initial labs showed normal white blood cell count, macrocytic anemia with a hemoglobin of 10, hematocrit 34%, neutrophils slightly elevated at 73%. Otherwise normal differential. Normal coag panel. Her ABG was likely venous. Elevated creatinine at 6.2, BUN 44 but the patient is a dialysis patient. Troponins elevated 0.084 and trending up to 0.354. Chest x-ray showed pulmonary vascular congestion got a dose of Lasix was placed on nitro drip. She denies having any history of coronary artery disease however does have history of atrial flutter/fibrillation and takes medication for it her blueprint engineer is all in [facility]. The patient was admitted into the hospital for fluid overload and given some diuretics as well as an extra dialysis treatment. Cardiology evaluated the patient and the patient declined further ischemic workup you with her elevated troponins. Patient agrees to follow-up with her blueprint engineer after discharge for further evaluation monitoring. 2D echocardiogram reviewed by the blueprint engineer showing lower limits normal 50%, no significant valve pathology. Patient was feeling much better and back to her normal volume status. Cardiology also worked on her atrial flutter with RVR and increased her amiodarone to 400 mg for a few days. Upon discharge cardiology recommended 200 mg daily for her amiodarone. The patient continued with her dialysis treatments as scheduled. Prior to discharge we were weaning the patient off of oxygen but she had concerns of ?neck swelling? if she was not on any oxygen. After reviewing her substation inspector note it seems she has a history of neck swelling which is associated with postnasal drips and need to be on Claritin. Claritin was started and Flonase as well as a Scolamine patch was added to help with her drainage. Home oxygen evaluation showed she does not need oxygen with rest or exertion. She had very minimal right neck swelling with our interventions. She did not have any issues with breathing and did not have any concerns with being discharged at this time. Talked to the patient's [id number] who is a nurse and understands and agrees the plan at this time. Patient will follow-up with her primary and blueprint engineer after discharge in 1 week. Return to ER warnings given. Patient was discharged in stable condition back to her living facility. (2) Diastolic congestive heart failure, NYHA class 2: Code(s): I50.30 - Unspecified diastolic (congestive) heart failure Status: Acute (3) End-stage renal disease (ESRD): Code(s): N18.6 - End stage renal disease Status: Acute (4) Obesity: Code(s): E66.9 - Obesity, unspecified Status: Acute (5) Right leg DVT: Code(s): I82.401 - Acute embolism and thrombosis of unspecified deep veins of right lower extremity Status: Acute (6) Thoracic aortic aneurysm without rupture: Code(s): I71.2 - Thoracic aortic aneurysm, without rupture Status: Acute (7) Anemia in chronic kidney disease: Code(s): N18.9 - Chronic kidney disease, unspecified; D63.1 - Anemia in chronic kidney disease Status: Acute (8) Atrial fibrillation: Code(s): I48.91 - Unspecified atrial fibrillation Status: Acute DS: Summary Hospital Course Hospital Course: See above Status at Discharge Cognitive/behavioral status at
[2021-04-12] MEDS: APIXABAN 2.5 MG TABLET PO (14:33)
[2021-04-12] MEDS: HYDROcodone/acetaminophen (*CRX) 5-325 MG TABLET 1 TAB PO (14:33)
[2021-04-12] MEDS: AMIODARONE HCL 200 MG TABLET PO (14:33)
[2021-04-12] MEDS: LORATADINE 10 MG TABLET PO (14:33)
--- NOTE | 2021-04-13 08:33 | PM.PNNEP ---
Progress Note: A&P Assessment and Plan (1) Allergic pharyngitis: Code(s): J02.9 - Acute pharyngitis, unspecified Status: Acute (2) Left bundle branch block: Code(s): I44.7 - Left bundle-branch block, unspecified Status: Acute (3) Atrial flutter with rapid ventricular response: Code(s): I48.92 - Unspecified atrial flutter Status: Acute (4) Elevated troponin: Code(s): R77.8 - Other specified abnormalities of plasma proteins Status: Acute (5) Chronic anticoagulation: Code(s): Z79.01 - long term (current) use of anticoagulants Status: Acute (6) Right leg DVT: Code(s): I82.401 - Acute embolism and thrombosis of unspecified deep veins of right lower extremity Status: Acute (7) End-stage renal disease (ESRD): Code(s): N18.6 - End stage renal disease Status: Acute (8) Diastolic congestive heart failure, NYHA class 2: Code(s): I50.30 - Unspecified diastolic (congestive) heart failure Status: Acute (9) Anemia in chronic kidney disease: Code(s): N18.9 - Chronic kidney disease, unspecified; D63.1 - Anemia in chronic kidney disease Status: Acute (10) Obesity: Code(s): E66.9 - Obesity, unspecified Status: Acute (11) Coagulopathy: Code(s): D68.9 - Coagulation defect, unspecified Status: Acute (12) Thoracic aortic aneurysm without rupture: Code(s): I71.2 - Thoracic aortic aneurysm, without rupture Status: Acute (13) Atrial fibrillation: Code(s): I48.91 - Unspecified atrial fibrillation Status: Acute (14) Pulmonary vascular congestion: Code(s): R09.89 - Other specified symptoms and signs involving the circulatory and respiratory systems Status: Acute (15) Acute dyspnea: Code(s): R06.00 - Dyspnea, unspecified Status: Acute Additional Plan check for home oxygen need anticipate discharge today or tomorrow. Subjective Date/time seen: 04/11/21 08:33 late entry less sob and swollen but still very tired upon moving and feels as if she needs oxygen Objective Data Vital Signs Vital Signs: Vital Signs - 24 hr 04/12/21 09:55 04/12/21 10:05 04/12/21 10:15 Temperature 36.2 C L Pulse Rate 70 60 56 L Respiratory Rate 16 Blood Pressure 135/71 137/70 132/67 Pulse Oximetry 100 04/12/21 10:30 04/12/21 10:45 04/12/21 11:00 Temperature Pulse Rate 55 L 55 L 56 L Respiratory Rate Blood Pressure 123/61 130/65 137/67 Pulse Oximetry 04/12/21 11:15 04/12/21 11:30 04/12/21 11:45 Temperature Pulse Rate 60 56 L 58 L Respiratory Rate Blood Pressure 147/75 H 134/68 150/51 H Pulse Oximetry 04/12/21 12:00 04/12/21 12:30 04/12/21 12:45 Temperature Pulse Rate 58 L 75 70 Respiratory Rate Blood Pressure 143/76 H 123/24 L 94/44 L Pulse Oximetry 04/12/21 13:00 04/12/21 13:08 04/12/21 13:15 Temperature Pulse Rate 71 70 78 Respiratory Rate Blood Pressure 100/46 L 79/44 L 118/61 Pulse Oximetry 04/12/21 13:35 04/12/21 13:45 04/12/21 14:16 Temperature 36.6 C 35.7 C L Pulse Rate 74 74 99 Respiratory Rate 16 16 Blood Pressure 112/53 L 95/52 L 131/90 Pulse Oximetry 100 96 Intake/Output Intake/Output: Intake & Output 04/10/21 04/11/21 04/12/21 04/13/21 23:59 23:59 23:59 23:59 Intake Total 340 980 120 Output Total 5838 281 5822 Balance -920 850 -2320 Meds/Results Radiology Results: ITS Impressions Chest X-Ray 04/09/21 22:17 IMPRESSION: Globular enlarged cardiac silhouette suggesting cardiomyopathy/cardiomegaly Small pleural effusions Interval resolution of pulmonary vascular congestion and diminished right infiltrate and right pleural effusion since 04/07/2021 Aortic calcification, ectasia and tortuosity. Thoracic aortic aneurysm is not excluded Right internal jugular central venous catheter tip overlying upper right atrium Diffuse osteopenia Quality VTE Prop
--- NOTE | 2021-04-13 08:34 | PM.PNNEP ---
Progress Note: A&P Additional Plan anticipate discharage later today. will aim to keep at lowest dw able. Subjective Date/time seen: 04/12/21 11:34am- late entry pt seen on dialysis. oyxgen studies do not show nee for home oxygen therapy Objective Data Vital Signs Vital Signs: Vital Signs - 24 hr 04/12/21 09:55 04/12/21 10:05 04/12/21 10:15 Temperature 36.2 C L Pulse Rate 70 60 56 L Respiratory Rate 16 Blood Pressure 135/71 137/70 132/67 Pulse Oximetry 100 04/12/21 10:30 04/12/21 10:45 04/12/21 11:00 Temperature Pulse Rate 55 L 55 L 56 L Respiratory Rate Blood Pressure 123/61 130/65 137/67 Pulse Oximetry 04/12/21 11:15 04/12/21 11:30 04/12/21 11:45 Temperature Pulse Rate 60 56 L 58 L Respiratory Rate Blood Pressure 147/75 H 134/68 150/51 H Pulse Oximetry 04/12/21 12:00 04/12/21 12:30 04/12/21 12:45 Temperature Pulse Rate 58 L 75 70 Respiratory Rate Blood Pressure 143/76 H 123/24 L 94/44 L Pulse Oximetry 04/12/21 13:00 04/12/21 13:08 04/12/21 13:15 Temperature Pulse Rate 71 70 78 Respiratory Rate Blood Pressure 100/46 L 79/44 L 118/61 Pulse Oximetry 04/12/21 13:35 04/12/21 13:45 04/12/21 14:16 Temperature 36.6 C 35.7 C L Pulse Rate 74 74 99 Respiratory Rate 16 16 Blood Pressure 112/53 L 95/52 L 131/90 Pulse Oximetry 100 96 Intake/Output Intake/Output: Intake & Output 04/10/21 04/11/21 04/12/21 04/13/21 23:59 23:59 23:59 23:59 Intake Total 340 980 120 Output Total 0384 997 5464 Balance -920 850 -2320 Meds/Results Radiology Results: ITS Impressions Chest X-Ray 04/09/21 22:17 IMPRESSION: Globular enlarged cardiac silhouette suggesting cardiomyopathy/cardiomegaly Small pleural effusions Interval resolution of pulmonary vascular congestion and diminished right infiltrate and right pleural effusion since 04/07/2021 Aortic calcification, ectasia and tortuosity. Thoracic aortic aneurysm is not excluded Right internal jugular central venous catheter tip overlying upper right atrium Diffuse osteopenia Quality VTE Prophylaxis VTE prophylaxis: pharmacologic ordered
== END 2021-04-12 15:25 | DRG 280 ==
LOC: ANHED 06:28 → ANHIMU 07:21 → ANH3MED 04-10 16:29 → ANHIMU 04-13 13:44
PROVIDERS: Internal Medicine; Internal Medicine Cardiovascular Disease; Internal Medicine Nephrology; Admitting Provider Internal Medicine; Emergency Provider Emergency Medicine; Visit Provider Physician Assistant
DX: I50.33 Acute on chronic diastolic (congestive) heart failure (principal); I21.A1 Myocardial infarction type 2; N18.6 End stage renal disease; D68.9 Coagulation defect, unspecified; I48.92 Unspecified atrial flutter; I48.91 Unspecified atrial fibrillation; R09.02 Hypoxemia; I71.2 Thoracic aortic aneurysm, without rupture; D63.1 Anemia in chronic kidney disease; R09.89 Other specified symptoms and signs involving the circulatory and respiratory systems; R09.82 Postnasal drip; I44.7 Left bundle-branch block, unspecified; J02.9 Acute pharyngitis, unspecified; E66.9 Obesity, unspecified; Z68.33 Body mass index [BMI] 33.0-33.9, adult; Z86.718 Personal history of other venous thrombosis and embolism; Z99.2 Dependence on renal dialysis; Z87.891 Personal history of nicotine dependence; Z79.01 Long term (current) use of anticoagulants
CPT/HCPCS: 36415; 36600; 71045; 71046; 80048; 80053; 80069; 82805; 83735; 84484; 85025; 85027; 85610; 85730; 86705; 86706; 87340; 93005; 93306; 94618; 94640; 96375; 97161; 97165; 99285; A9270; G0257; G0378; J1644; J1940; J7030; Q5105